=== PATIENT | male | born 1945 | race Caucasian/White ===

== ENCOUNTER 2016-10-29 20:11 | Emergency (ER) | payer MEDICARE ==
[~2016-10-29 20:11] MED LIST: ATIVAN0.5 M1 PO; PRILOSEC20 MG PO
[2016-10-29 20:51] LABS: BASOPHIL 0.5 % (0-2); EOSINOPHIL 1.8 % (0-7); HCT 43.4 % (42.0-52.0); HGB 15.4 g/dl (13.2-18.0); LYMPHOCYTE 32.8 % (15-48); MCH 29.4 pg (25.0-31.0); MCHC 35.5 g/dL (32.0-36.0); MONOCYTE 12.5 % (0-12); MPV 9.6 fL (6.0-9.5); NEUTROPHIL 52.4 % (41-80); PLT 228 K/uL (150-400); RBC 5.23 M/uL (4.70-6.00); RDW 12.5 % (11.5-14.0); WBC 6.1 K/uL (4.0-10.5)
[2016-10-29 20:59] LABS: INR 0.92 (0.9-1.2); PTT 25.2 SECONDS (23.2-31.4)
[2016-10-29 21:16] LABS: CKMB 1.49 ng/mL (0.97-4.94); TROPONIN T < 0.010 ng/mL
[2016-10-29 21:18] LABS: ALBUMIN 4.3 g/dL (3.4-4.8); BILIRUBIN - TOTAL 0.3 mg/dL (0.1-1.0); CREATININE 1.3 mg/dL (0.7-1.2); GLOBULIN (CALCULATION) 2.7 g/dL (2.2-4.2); POTASSIUM 3.9 mmol/L (3.5-5.1)
== END 2016-10-29 23:25 | disposition home or self-care (01) ==
LOC: FER 20:11
PROVIDERS: Emergency Medicine
DX: I11.9 Hypertensive heart disease without heart failure (principal); K29.70 Gastritis, unspecified, without bleeding; I25.810 Atherosclerosis of coronary artery bypass graft(s) without angina pectoris; K21.9 Gastro-esophageal reflux disease without esophagitis; Z88.5 Allergy status to narcotic agent; Z79.82 Long term (current) use of aspirin; Z79.899 Other long term (current) drug therapy; Z95.1 Presence of aortocoronary bypass graft; Z95.5 Presence of coronary angioplasty implant and graft
CPT/HCPCS: 36415; 71010; 80053; 82550; 82553; 84484; 85025; 85610; 85730; 93005

== ENCOUNTER 2020-11-30 14:12 | Day surgery (SDCO) | payer MEDICARE ==
[~2020-11-30] VITALS: Ht 177.8 cm; Wt 75.0 kg
[~2020-11-30 14:12] MED LIST changes: +ASPIRIN EC81 MG PO; +ATIVAN0.5 MG PO; +CATAPRES-T0.1 MG/24 TOP; +CYMBALTA 30MG C30 MG PO; +FLONASE ALLER15.8 ML; +NEURONTIN100 MG PO; +NITROQUIK SL0.4 MG SL; +NORVASC2.5 MG PO
[2020-11-30 14:46] LABS: BASOPHIL 0.8 % (0-2); EOSINOPHIL 1.4 % (0-7); MCH 29.9 pg (25.0-31.0); MCHC 34.1 g/dL (32.0-36.0); MCV 87.8 fL (78.0-100.0); MPV 10.2 fL (6.0-9.5); NEUTROPHIL 67.5 % (41-80); NRBC 0; PLT 187 K/uL (150-400); RBC 5.01 M/uL (4.70-6.00); RDW 12.4 % (11.5-14.0); WBC 6.2 K/uL (4.0-10.5)
[2020-11-30 15:01] LABS: INR 0.99 (0.9-1.2); PROTHROMBIN TIME 12.4 SECONDS (11.4-13.6); PTT 26.9 SECONDS (22.2-34.7)
[2020-11-30 15:20] LABS: ALBUMIN 3.6 g/dL (3.4-5.0); BILIRUBIN - TOTAL 0.3 mg/dL (0.2-1.0); BUN/CREAT RATIO (CALC) 12.3 RATIO; CREATININE 1.22 mg/dL (0.67-1.17); GLOBULIN (CALCULATION) 3.3 g/dL; POTASSIUM 3.8 mmol/L (3.5-5.1); TOTAL PROTEIN 6.9 g/dL (6.4-8.2)
[2020-11-30 15:30] LABS: CKMB 0.6 ng/mL (0.0-3.6)
[2020-11-30 19:57] LABS: BILIRUBIN NEGATIVE (NEGATIVE); BLOOD NEGATIVE Ery/uL (NEGATIVE); CLARITY CLEAR (CLEAR); COLOR YELLOW (YELLOW); GLUCOSE (U) NORMAL (NORMAL); LEUKOCYTES NEGATIVE Leu/uL (NEGATIVE); NITRITE NEGATIVE (NEGATIVE); PROTEIN NEGATIVE (NEGATIVE); SPECIFIC GRAVITY 1.015 (1.001-1.030); UROBILINOGEN 0.2 mg/dL (0.2-1.0); pH 7.5 (5.0-9.0)
[2020-12-01 04:02] LABS: ALBUMIN 3.3 g/dL (3.4-5.0); BILIRUBIN - TOTAL 0.5 mg/dL (0.2-1.0); BUN/CREAT RATIO (CALC) 11.2 RATIO; CREATININE 1.16 mg/dL (0.67-1.17); GLOBULIN (CALCULATION) 3.5 g/dL; POTASSIUM 3.7 mmol/L (3.5-5.1); TOTAL PROTEIN 6.8 g/dL (6.4-8.2)
[2020-12-01] MEDS ORDERED: COZAAR50 MG PO (08:17)
[2020-12-01] MEDS ORDERED: ISOSORBIDE MONO30 MG PO (08:17)
== END 2020-12-01 09:00 | disposition home or self-care (01) ==
LOC: FER 14:12 → FTCU 16:00
PROVIDERS: Emergency Medicine; ADMIT Internal Medicine
DX: I10 Essential (primary) hypertension (principal); R07.89 Other chest pain; G47.00 Insomnia, unspecified; I25.10 Atherosclerotic heart disease of native coronary artery without angina pectoris; E78.5 Hyperlipidemia, unspecified; Z95.1 Presence of aortocoronary bypass graft; Z91.14 Patient's other noncompliance with medication regimen; Z88.5 Allergy status to narcotic agent; Z79.82 Long term (current) use of aspirin; Z79.899 Other long term (current) drug therapy; Z20.822 Contact with and (suspected) exposure to COVID-19
CPT/HCPCS: 36415; 71046; 80053; 80061; 81003; 82553; 84484; 85025; 85610; 85730; 93005; G0378; J0360; J3490; U0002